=== PATIENT | female | born 1940 | race Caucasian/White ===

== ENCOUNTER → 2022-02-24 13:33 | Outpatient (CLI) | payer OTHER, SELFPAY ==
[2022-02-24 15:13] LABS: Add Manual Diff / Slide Review NO; Basophils Absolute Auto 0 /uL (0-100); Basophils Percent Auto 0.9 % (0-2); Eosinophils Absolute Auto 200 /uL (0-450); Hematocrit 40.8 % (36-46); Hemoglobin 13.7 g/dL (12.0-16.0); Lymphocytes Absolute Auto 500 /uL (1100-4500); Lymphocytes Percent Auto 9.8 % (25-40); Mean Corpuscular HGB Conc 33.5 % (30-36); Mean Corpuscular Hemoglobin 30.5 PG (26-34); Mean Corpuscular Volume 90.9 fL (80-100); Monocytes Absolute Auto 400 /uL (0-900); Monocytes Percent Auto 7.4 % (3-14); Neutrophils Absolute Auto 4300 /uL (1500-7000); Neutrophils Percent Auto 78.9 % (50-75); Platelet Count 207 X10^3/uL (150-400); Red Blood Cell Count 4.48 X10^6/uL (4.0-5.2); Red Cell Distribution Width 13.3 % (11.6-14.8); White Blood Cell Count 5.4 X10^3/uL (4.5-11.0)
[2022-02-24 15:32] LABS: Hemoglobin A1C% w Est Avg Glu 5.2 % (4.0-6.0)
[2022-02-24 15:33] LABS: BUN Creatinine Ratio 28.3 (6-22); Blood Urea Nitrogen 28 mg/dL (7-17); Calcium 9.4 mg/dL (8.4-10.2); Carbon Dioxide 27 mmol/L (22-32); Chloride 101 mmol/L (98-107); Estimated Glomerular Filt Rate 58 mL/min (>60); Glucose 94 mg/dL (80-110); HEMOLYSIS < 15 (0-50); Potassium 4.3 mmol/L (3.4-5.1); Sodium 139 mmol/L (137-145)
== END ==
PROVIDERS: PCP Nurse Practitioner; Referring Provider Orthopaedic Surgery Foot and Ankle Surgery; Visit Provider Orthopaedic Surgery Foot and Ankle Surgery
DX: Z01.818 Encounter for other preprocedural examination (principal); R73.9 Hyperglycemia, unspecified; Z01.812 Encounter for preprocedural laboratory examination
CPT/HCPCS: 36415; 80048; 83036; 85025; 93005; 93010

== ENCOUNTER 2022-05-03 08:59 | Day surgery (SDC) | payer OTHER, SELFPAY ==
[2022-04-27 09:27] VITALS: BMI 31.4
[2022-05-03] VITALS (13 sets, daily range): BP systolic 104–166; BP diastolic 64–80; PULSE 55–80; RESP 10–18; TEMP 36.1–36.9; O2SAT 95–98; BMI 31.4
--- NOTE | 2022-05-03 09:51 | SUR.PREOP ---
Dr. Olvera has given verbal telephone order for 1 gram Vancomycin NOW for this pt.
[2022-05-03] MEDS: VANCOMYCIN 1,000 MG/200 ML PIGGYBACK 200 MG IV (10:10)
[2022-05-03 10:15] LABS: COVID19 -Nasal RAPID Negative (Negative)
--- NOTE | 2022-05-03 10:40 | PM.PREOP ---
Pre-operative Note Interval Note History & Physical reviewed/Exam performed by Physician: Yes Changes to H&P: No
[2022-05-03] MEDS: LACTATED RINGERS 1,000 ML 42 ML IV ×2 (10:42→13:06)
[2022-05-03] MEDS: ACETAMINOPHEN 325 MG TABLET 975 MG PO (10:43)
--- NOTE | 2022-05-03 10:47 | P.OP_ITS ---
Operative Date/Time/Diagnoses Date of procedure: 05/03/22 Time of procedure: 10:40 Pre-op diagnosis: Severe left knee osteoarthritis Post-op diagnosis: same Procedure & Clinicians Procedure: Left total knee arthroplasty Same procedure as scheduled: Yes Indications: The patient has had progressively worsening left knee pain with radiographic changes consistent with arthritis. Non-operative management has failed and the patient has requested total knee replacement. She had atypical portion of her anterior femur which was worked up preoperatively the CT scan. They are done it did not appear to be a substantial bony defect that a revision prosthesis was available if needed. The risks, benefits and alternatives to surgery were discussed with the patient prior to proceeding. Risks discussed included, but were not limited to, failure to relieve pain, stiffness, infection, nerve damage, deep venous thrombosis, pulmonary embolism, stroke, coma, heart attack, permanent paralysis and , as well as the potential need for eventual revision of the prosthetic. Surgeon: Racheal Olvera Brim Blocker: Fabián Riley Anesthesia Type: General and Spinal Operative Notes Findings: Severe left knee osteoarthritis especially laterally, slight anterior cortical defect, adequate stability in bone Closure Type: primary Specimen(s): none sent Prosthetic devices, grafts, tissues, transplants, or devices: Olvera and nephew [facility] BCS 2 size 7 femur, size 5 tibia, 35 by 7-1/2 mm mm patella, size 9 poly Estimated Blood Loss (mL): 250 Blood products transfused: none Tourniquet time (min): 79 Procedure in detail: The patient was seen in the pre-operative area, where the patient identified the left knee as the operative site and this was marked with my initials. The patient received pre-operative antibiotics, and was taken to the operating room and placed on the operative table in the supine position. After satisfactory anesthesia, a motion and time study teacher out was performed. The left leg was encircled with a tourniquet about the proximal thigh, and the leg was prepared from the toes to the tourniquet with ChloroPrep in the usual fashion and draped through sterile drapes. The leg was elevated and exsanguinated with Eschmark bandage and the tourniquet inflated to [250] mmHg pressure. The knee was approached through an approximately 18 cm incision centered over the patella and carried into the knee through a medial parapatellar arthrotomy. A portion of the medial and lateral meniscus was resected. Soft tissue was carefully mobilized around the patella the patella was measured with a caliper. There were severe osteophytes around the patella. There were meticulously removed. She had a fairly thin patella. Bone was resected from the patella and the patellar height was reconstituted with up an appropriate sized patellar component. A cover was then placed on the patella. A small amount of additional medial and lateral meniscus was resected. The distal femur was cut at 5?. A [+2] cut was used. I meticulously dissected tissue off of the anterior cortex. There was a moderate anterior bony ridge on the anterior femoral cortex which was felt to be from the patella impinging. It looked like an appropriate distal femoral cut and the cut was made without difficulty. An extramedullary guide was used for the tibial cut. 10 mm was resected off the least affected side.The tibia was prepared. The rotation was assessed. The patient was placed in extension residual medial and lateral meniscus as well as any residual bone was carefully resected. The gap was quite tight. 4 mm Additional tibia was resected. Hemostasis was achieved especially posteriorly. Additional local was injected into the posterior capsule. The extension gap was assessed and additional releases for gap balancing were performed as necessary. It was checked with the gap short range air defense artillery. The femoral component trial was placed and the notch was finished. The rotation was assessed and the appropriate size femoral guide was placed on the distal femur and finishing cuts were made. There was slight thinning of the central portion of the anterior cortex without severe evidence of notching. The anterior, posterior and chamfer cuts were then made. The posterior osteophytes and soft tissues were then removed. The posterior capsule was injected with part of a mixture of 60 ml 0.25% Marcaine mixed with 20 ml Exparel for post operative pain control. The remainder of this mixture was injected into the capsule and subcutaneous tissues during cement curing. Bone was placed as a bone plug and a small amount on the anterior femoral cortex. The Tibial and femoral components were then placed and the knee placed through a range of motion. Range of motion was [0-130], with good stability throughout the range. The trials were then removed, and the tibia was finished. The bone was prepared with pulsatile lavage, and dried with a sponge. Cement was applied and the final prosthetics placed. Excess cement was removed during and after cement curing. A small amount of cement was also left on the anterior cortex. A brief Betadine soak was performed. After confirming there was no extruded cement posteriorly, the final tibial insert was placed. The knee was copiously irrigated and the tourniquet deflated. Hemostasis was obtained with the Bovie cautery. A drain was placed and brought out superolaterally. The capsule was closed with interrupted nonabsorbable suture. The subcutaneous layer was closed with barbed sutures, and the skin with a running 3-0 V-Lock suture and Surgical glue. An Aquacel Ag dressing was applied and the patient was taken to recovery having tolerated the procedure well. Complications: none Post-operative Condition: stable Disposition: observation Plan for aftercare: The patient will be maintained on a standard total knee replacement protocol with weight bearing as tolerated. The patient will receive Lovenox and sequential compression devices for DVT prophylaxis. The patient will be discharged home when safe for the home environment.
[2022-05-03] MEDS: CEFAZOLIN 2 GM/100 ML PREMIX 100 ML IV ×2 (11:34→18:45)
--- NOTE | 2022-05-03 11:56 | SUR.OPER ---
Supine on padded OR bed. Pillow under head, arms secured on padded armboards <90 degree abduction. Safety belt across torso. Non-operative leg secured with tape over blanket over lower leg. Operative leg secured in DeMayo positioner. Foam padded brace at thigh of operative leg. Pt positioned per direction and supervision of Dr Olvera.
[2022-05-03] MEDS: TRANEXAMIC ACID 1,000 MG VIAL 1000 MG INJ ×2 (12:08→13:20)
[2022-05-03] MEDS: BUPIVACAINE LIPOSOME 266 MG/20 ML VIAL INJ (12:09)
[2022-05-03] MEDS: BUPIVACAINE 0.25% (PF) 60 ML, EPINEPHrine 0.3 MG INJ (12:09)
[2022-05-03] MEDS: SODIUM CHLORIDE IRRIG SOLUTION 250 ML, POVIDONE-IODINE SPONGE STICKS 1 APPLIC IRR (13:21)
--- NOTE | 2022-05-03 13:54 | DI.RAD.S_ITS ---
PROCEDURE: XR KNEE LT 1TO2V INDICATIONS: postop TECHNIQUE: 2 view(s) of the knee acquired. [facility] [place], [place], XR KNEE 4+ VIEWS LEFT, 02/09/2022, 15:02. FINDINGS: Bones: Patient is status post knee joint arthroplasty. Hardware components are in expected positions. Visualized bony structures are intact. Soft tissues: Overlying postoperative changes are noted. IMPRESSION: Postop changes from left total knee arthroplasty with anatomic left knee alignment. Dictated by: Von Dutta M.D. on 05/03/2022 at 13:23 Approved by: Von Dutta M.D. on 05/03/2022 at 13:24
[2022-05-03] MEDS: polyethylene glycoL 3350 17 GM POWD.PACK PO (14:56)
[2022-05-03] MEDS: ONDANSETRON 4 MG ODT PO (14:56)
[2022-05-03] MEDS: TRAMADOL 50 MG TABLET PO (14:56)
[2022-05-03] MEDS: IBUPROFEN 400 MG TABLET PO ×2 (17:45→21:21)
[2022-05-03] MEDS: ACETAMINOPHEN 325 MG TABLET 650 MG PO (17:48)
[2022-05-03] MEDS: OXYCODONE IR 10 MG TABLET PO (18:51)
[2022-05-03] MEDS: DOCUSATE 100 MG CAPSULE PO (21:21)
[2022-05-03] MEDS: DABIGATRAN 75 MG CAPSULE 150 MG PO (21:21)
[2022-05-03] MEDS: METOPROLOL ER 50 MG TABLET PO (21:22)
[2022-05-03] MEDS: lisinopriL 5 MG TABLET PO (21:23)
[2022-05-04] VITALS: BP 108/68; PULSE 72; RESP 18; TEMP 36.2; O2SAT 94
[2022-05-04] MEDS: IBUPROFEN 400 MG TABLET PO ×4 (00:21→12:29)
[2022-05-04] MEDS: ACETAMINOPHEN 325 MG TABLET 650 MG PO ×3 (00:22→12:31)
[2022-05-04 04:00] VITALS: BP 107/71; PULSE 64; RESP 17; TEMP 36.5; O2SAT 95
[2022-05-04] MEDS: CEFAZOLIN 2 GM/100 ML PREMIX 100 ML IV (04:06)
[2022-05-04 04:52] LABS: Hematocrit 36.5 % (36-46); Hemoglobin 12.2 g/dL (12.0-16.0)
--- NOTE | 2022-05-04 06:50 | PM.DS.1 ---
History of Present Illness History of Present Illness Date Patient Seen: 05/04/22 Time Patient Seen: 06:50 Chief complaint: Left TKA *OPB* Discharge Providers Provider Discharge Date: 05/04/22 Primary care physician: RYAN Watkins Consults: 05/03/22 10:41 Consult to Anesthesiology Routine Comment: Consulting Provider: Anesthesiologist Reason for consultation: Regional block for post operative pain control 05/03/22 14:17 Consult to Discharge Planning Routine Comment: Consult to Physical Therapy Evaluate & Treat Comment: Physician Instructions: postop TKA protocol Discharge provider: Trish Connor PA-C Summary Hospital Course Discharge Diagnosis: Left knee osteoarthritis, s/p left total knee arthroplasty Hospital Course: Ms Joel's hospital course was unremarkable. On the morning of POD# 1, she was feeling well and wanted to go home. She had not yet been evaluated by PT. She was eating and voiding without difficulty and her pain was well-controlled with oral medication. Exam Vital Signs (past 8 hours): - 05/04/22 00:00 05/04/22 04:00 Temperature 97.1 F L 97.7 F Pulse Rate 72 64 Respiratory Rate 18 17 Blood Pressure 108/68 107/71 Pulse Oximetry 94 95 Oxygen Delivery Method Room Air Oxygen Flow Rate 0 Narrative Exam Narrative: 5/5 strength in hip flexors, DF, PF, EHL; 4/5 quadriceps, hamstrings on left. Sensation to light touch intact throughout LLE. Calves soft, compressible, nontender and without palpable cords or masses. ANDRES dressing functioning; CDI. 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 Chronic anticoagulation w/ Pradaxa should be sufficient for post-op VTE prophylaxis. Multimodal pain control, outpt PT, f/u in office in 2 weeks. Discharge Plan Discharge Plan Patient Disposition: Home Discharge orders & Medications Discharge Orders: Discharge (Order); Ordered 05/04/22 Ordered By: Trish Connor Prescriptions: New oxycodone 5 mg Tablet 5 mg PO Q4-6H PRN (Reason: Pain, Moderate (4-6)) Qty: 60 0RF acetaminophen 325 mg Tablet 650 mg PO Q6HR PRN (Reason: fever or pain) Qty: 240 0RF docusate sodium 100 mg Capsule 100 mg PO BID PRN (Reason: constipation) Qty: 60 1RF Continued metoprolol succinate 50 mg Tablet Extended Release 24 Hr 50 mg PO BID chlorthalidone 25 mg Tablet 25 mg PO DAILY lisinopril 5 mg Tablet 5 mg PO BID Lumigan 0.01 % Drops 1 drp EYE-BOTH BEDTIME dabigatran etexilate 150 mg Capsule 150 mg PO BID Follow up/Referrals: Dinorah Shirley ARNP [Primary Care Provider] - Racheal Olvera MD [Physician] - As previously scheduled (Follow up with Duyen Dominguez PA-C, on 05/17/2022 @ 1:40 pm at [facility] office in [place].) Diet/Activity/Treatments Diet: Diet as Tolerated Activity: Walk frequently! Cold/Heat Therapy: Ice to knee as needed for pain. Skin/Wound/Dressing Care Report to your healthcare provider any signs of infection, such as:: chills, fever, night sweats, unusual drainage and unusual redness Dressing: May remove GISSELLE wrap and shower on 05/06/2022. Leave dressing in place until follow up in office. Batteries will in 5-7 days, at which point battery pack can be cut off and disposed of. Call the office if the dressing becomes saturated inside. Visit Report/Discharge Packet Instructions: DI for Knee Replacement Stand Alone Forms: Patient Portal/API, Surgery Discharge Discharge Data Primary Care Provider: Eskes,Dinorah C Attending Provider: Racheal Olvera VTE Deep Vein Thrombosis/Pulmonary Embolism Present on Admission: No
[2022-05-04 07:45] VITALS: BP 98/63; PULSE 83; RESP 17; TEMP 37.2; O2SAT 96
[2022-05-04 09:00] VITALS: BP 116/66
[2022-05-04] MEDS: DOCUSATE 100 MG CAPSULE PO (09:08)
[2022-05-04] MEDS: DABIGATRAN 75 MG CAPSULE 150 MG PO (09:09)
[2022-05-04] MEDS: TRAMADOL 50 MG TABLET PO (09:24)
[2022-05-04 11:17] VITALS: BP 90/61; BP 90/67; PULSE 82
--- NOTE | 2022-05-04 12:00 | PT.IIE ---
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) Hx of bilateral cataract extraction Hx of bilateral mastectomy Hx of breast surgery Hx of oophorectomy Hx of varicose vein stripping (~1967) Medical History (Last Updated 04/27/22 @ 10:37 by Lily Murillo RN) Anesthesia complication Atrial fibrillation Breast cancer History of cardioversion (05/2017) HTN (hypertension) Osteoarthritis Pelvic fracture 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 lower extremities Physical Therapy Inpatient Evaluation/Re-Eval M1 PT/OT-IP Prior Functional Status Start: 05/04/22 12:12 Freq: NEEDED Status: Active Protocol: Document 05/04/22 12:00 DLM (Rec: 05/04/22 12:35 DLM [id number]) Medical Review Prior Functional Status Medical History Reviewed Yes Diet/Fluid Consistency Regular Communication WNL Mobility and Gait Independent with FWW Activities of Daily Living and IADL's Independent, helps care for , assisted living assists with cleaning Social History Household Members spouse Living Arrangements Assisted Living Number of Floors (Floors) One Floor Number of Stairs To Enter/Railing? none at her apt, 2 steps with rail to enter her Daughters house Home Environment Standard Height Toilet,Walk in Shower Home Equipment Front Wheel Walker,Straight Cane,Raised Toilet Seat w/ Armrests,Shower Seat without Backrest,Hand Held Shower,Grab Bars In Shower Employment Status Retired Additional Social History Comment She is at [employer], has a call light she can use to ask staff for help She has not made arrangements for out-pt PT after surgery, wants to go same places as her goes. M2 PT-IP Current Condition Start: 05/04/22 12:12 Freq: NEEDED Status: Active Protocol: Document 05/04/22 12:00 DLM (Rec: 05/04/22 12:35 DL [id number]) Physical Therapy Current Condition Current Condition Evaluation Date 05/04/22 Treatment Diagnosis left TKA, impaired mobility/ gait Onset Date 05/03/22 M3 PT-IP Subjective Start: 05/04/22 12:12 Freq: NEEDED Status: Active Protocol: Document 05/04/22 12:00 DLM (Rec: 05/04/22 12:35 DLM [id number]) Subjective Physical Therapy Visit Type Type Initial Evaluation Visit Start Time 11:15 Visit Stop Time 12:00 Total Visit Minutes 45 Number of MERCHANDISING SPECIALIST Visits 0 Physical Therapy Visit Comments Patient Comments Her Daughter plans to provide extra help as needed at discharge today. Patient Goals Discharge home Therapy Pain Assessment Pain When Pain Assessed During Mobility Pain Present Pain Present Pain Reported Location Left Knee Intensity 2 Scale Used Numeric (0 - 10) Description Aching,Tender,With Movement Pain Management Techniques Re-positioning,Timing of Activity with Medications M4 PT-IP Mobility and Gait Start: 05/04/22 12:12 Freq: NEEDED Status: Active Protocol: Document 05/04/22 12:00 DLM (Rec: 05/04/22 12:35 DLM [id number]) PT-Bed Mobility Assessment Supine to Sit Supine to Sit Independent Sit to Supine Sit to Supine Independent Scooting Scooting to Edge of Bed Independent Scooting Up and Down in Bed Independent PT-Transfer Assessment Sit to and From Stand Sit to and from Stand Independent,Use of Upper Extremities Equipment Transfer Assistive Device Gait Belt,Front Wheeled Walker Transfers Transfer Destination Bed,Toilet Transfer Technique Stand Step Pivot Transfer Ability Level of Assist Independent,Use of Upper Extremities Comments Mobility Comments she demonstrates safe use of UE's to assist with sit-stand, provided education for safe use of FWW by keeping with her all the time Gait Assessment Gait Gait Assistance Required: Independent Distance (Feet) 80 Able to Maintain Weight Bearing Status Yes During Gait Assistive Devices Assistive Device Gait Belt,Front Wheeled Walker Gait Deviations General Gait Pattern Antalgic Factors Limiting Gait Function Factors Limiting Gait Function Decreased Activity Tolerance, Decreased Strength,Limited Range of Motion,Pain Comments Gait Comments She demonstrates safe use of FWW, she does not need excessive use of UE support on FWW and is primarily using the FWW for balance at this time Stair Climbing Assessment Evaluation Level of Assist On Stairs Standby Assistance Devices Stair Climbing Assistive Devices Left Railing,Right Railing Technique/Endurance Stair Climbing Direction Ascend and Descend Stair Climbing Technique Step to Step Number of Steps Climbed 3 Query Text: Stair Climbing Set # Repetitions (reps) 1 Comments Stair Climbing Comments Her Daughter requested stair training today so pt knows how to use them to get into Daughters house, pt demonstrates good functional strength with step-to pattern, discussed use of cane or person assist on one side if she has only one rail PT-Balance Assessment Sitting Balance and Reactions Static Sitting Balance Ability Normal Dynamic Sitting Balance Ability Normal Standing Balance and Reactions Static Standing Balance Ability Good Dynamic Standing Balance Ability Good Device Used FWW M5 PT-IP Objective Assessments Start: 05/04/22 12:12 Freq: NEEDED Status: Active Protocol: Document 05/04/22 12:00 DLM (Rec: 05/04/22 12:35 DLM [id number]) Orientation Orientation/Cognition Level of Alertness Alert Orientation Name,Age,Birthday,Month,Date, Year,Day of Week,Place, Situation Language Function Ability No Deficits Noted Safety Awareness Understands Safety Issues Memory Description No Deficits Noted Gross Range of Motion Upper Extremity ROM Assessment Within Functional Limits Lower Extremity ROM Assessment Left Impaired Impairments pain with full knee extension, able to achieve 85 degrees flexion seated Strength Upper Extremity Strength Assessment Within Functional Limits Lower Extremity Strength Assessment Left Impaired Hip able to do straight leg raise Knee ext 3-/5 Ankle DF 5/5 Coordination Assessment Gross Coordination Gross Coordination WNL Sensation Assessment Sensation Gross Sensation WNL Muscle Tone Muscle Tone WNL Yes M6 PT-IP Treatment Start: 05/04/22 12:12 Freq: NEEDED Status: Active Protocol: Document 05/04/22 12:00 DLM (Rec: 05/04/22 12:35 DLM [id number]) Physical Therapy Treatment Exercises Exercises Ankle Pumps,Quad Sets,Heel Slides,Straight Leg Raises, Short Arc Quads,Passive Knee Extension Hang,Seated Knee Flexion/Extension Education Education Provided Weight Bearing Status,Post-Op Packet,Safety Other Treatments Other Treatment Performed Her Daughter is present and participated in therapy session, answered questions, recommend they call surgeon about getting out-pt PT referral M7 PT-IP Assessment and Plan Start: 05/04/22 12:12 Freq: NEEDED Status: Active Protocol: Document 05/04/22 12:00 DLM (Rec: 05/04/22 12:35 DL [id number]) PT Summary Assessment and Plan Potential Rehabilitation Potential Excellent Status of Condition at Evaluation Evolving Summary Impairments Pain,ROM,Strength,Bed Mobility ,Transfers,Gait,Activity Tolerance Progress Towards Goals Safe For Discharge Assessment Summary Aby is alert and resting in bed. She has been up to the toilet with nursing and tolerated it well. Pt reports increased knee pain with moving knee but minimal pain with weight bearing during gait. Pt demonstrates safe use of FWW for gait. She was able to participate in her Post-op exercises. Educated pt in safety and pain management post-op. She appears to be safe to discharge home today when medically cleared. She has a good support system at assisted living and her family . Frequency of Treatment Frequency Of Treatment Discharge Treatment Plan Other Recommendations and Next Treatment training completed this visit Focus Weight Bearing Status Weight Bearing Status Weight Bear as Tolerated Allowed Weight Bearing Amount (enter % left LE or #) (%) Recommendations To Nursing Amount of Assist Needed Standby Assistance Discharge Recommendations PT Discharge Recommendations Home with Assistance, Outpatient PT Transportation Needs at Discharge Private Vehicle
[2022-05-04 12:09] VITALS: BP 90/61; PULSE 78; RESP 19; TEMP 37.1; O2SAT 97
--- NOTE | 2022-05-04 12:22 | CM.DANOTE ---
Discharge Planning/Care Management CM Discharge Assessment Start: 05/04/22 12:07 Freq: Status: Active Protocol: Document 05/04/22 12:07 BRIDGETT (Rec: 05/04/22 12:22 BRIDGETT [id number]) Discharge Planning Assessment Assigned Communications Media Professor SALEEM Franco DPOA/Assigned Designee Name roberto Rivera Contact Information [phone] Advance Directives? No History Provided By Patient,Family Member Prior Living Arrangements Assisted Living Comment [facility] Household Members spouse Type of transporation used prior to Relies on Others admit Facility Name Admitted From: [facility] Willing to Return to Facility? Yes Independent with ADL's No: Near Indp Is patient alert and oriented? Yes Needs Assistance With Meal Prep,Home Chores / Shopping Barriers to Discharge No Comment Patient is a 81 yo resident at [facility], lives w/spouse, now POD 1 from s/p left total knee arthroplasty by Dr Olvera. Patient has planned to return home w/her daughter Brianda to assist once home to the [facility] , outpatient PT, and therapy has cleared patient for this plan No CM needs identified Discharge Plan Home Transportation Arrangement Family Referrals Initiated None needed
--- NOTE | 2022-05-04 13:04 | PC.NURSE ---
1245 Patient's blood pressure has been on the low side today, however patient has been asymptomatic, denies dizziness & weakness. Held home blood pressure meds this morning. Pulse has been 70's - 80's. Patient has been up several times including working with physical therapy and being cleared for discharge. Dressing to left knee is C/D/I with ANDRES dressing in place with green light blinking. Pain is well controlled. Patient and daughter state they feel prepared to go home.
== END 2022-05-04 12:52 | disposition home or self-care (01) ==
LOC: OR 09:00 → AC 09:01 → ICU 13:32
PROVIDERS: PCP Nurse Practitioner; Referring Provider Orthopaedic Surgery; Visit Provider Orthopaedic Surgery
PROC: 0SRD0JZ Replacement of Left Knee Joint with Synthetic Substitute, Open Approach (ICD-10-PCS; CPT 27447; principal; 2022-05-03 11:15)
DX: M17.12 Unilateral primary osteoarthritis, left knee (principal); I10 Essential (primary) hypertension; Z20.822 Contact with and (suspected) exposure to COVID-19
CPT/HCPCS: 27447; 36415; 73560; 85014; 85018; 87635; 97110; 97162; C1776; C9803; C9290; J0171; J0690; J1100; J2405; J2704; J3010